=== PATIENT | female | born 1975 | race Caucasian/White ===

== ENCOUNTER 2016-09-21 00:08 | Emergency (ER) | payer OTHER ==
--- NOTE | 2016-09-21 01:18 | ED Physician Documentation ---
Female Urogenital Problems - HISTORIAN Historian: patient - HPI Stated Complaint: Vaginal bleeding, increased flow over past 2 days Chief Complaint: Female Urogenital Problems Additional Information: HEAVY MENSES W/CLOTS-HAS HAD THIS PROBLEM FOR YEARS-ESS NO HELP FROM GYNECOLOGISTS-CONCERN RE ANEMIA Onset: days ago (3) Severity: moderate Location of Pain: vaginal pain (MODERATE TO MINIMAL ESS USUAL BUT MORE CLOTS THIS MENSES) - Vaginal Bleeding Compared to Menstrual Periods: heavier, passing clots - Associated Symptoms Urinary Symptoms: none Discharge: vaginal discharge - ROS CONST: no problems (HAS URI SAW DR PRESCOTT TODAY) GI/: denies: nausea, vomiting CVS/RESP: none EYES/ENT: none NEURO/PSYCH: none MS/SKIN/LYMPH: none - PAST HX Past History: other (PCOS DM LO THRYOID) Surgeries/Procedures: Allergies/Adverse Reactions: Allergies Allergy/AdvReac Type Severity Reaction Status Date / Time tramadol Allergy Mild hives Verified 09/21/16 01:16 Home Medications: Ambulatory Orders Medication Instructions Recorded Insulin Aspart Protam & Aspart See Protocol SUBCUT 09/21/16 [Novolog Mix 70-30 Vial] - SOCIAL HX Smoking History: non-smoker Alcohol Use: none Drug Use: none - FAMILY HX Family History: none - VITAL SIGNS Vital Signs: Vital Signs Temp Pulse Resp BP Pulse Ox 88 18 138/84 98 09/21/16 00:08 09/21/16 00:08 09/21/16 00:08 09/21/16 00:08 - REVIEWED ASSESSMENTS Nursing Assessment Reviewed: Yes Vitals Reviewed: Yes ED Results Lab/Radiology - Orders Orders: ED Orders Category Date Time Status CBC/PLATELET/DIFF Routine Lab 09/21/16 Ordered Female Urogenital Problems - EXAM General Appearance: mild distress EENT: eye inspection normal Neck: nml inspection Respiratory: no resp. distress, breath sounds nml CVS: reg rate & rhythm, heart sounds normal Abdomen: soft, non-tender Pelvic: other ( HAS RATHER SMALL BLOOD CLOT IN PANTIES WHICH SHE BROUGHT) Skin: color nml, no rash, warm,dry. No: cyanosis, diaphoresis Extremities: non-tender, other (NAIL MARIUM LESS THAN 1 SECOND) Neuro: oriented X3, motor nml, sensation nml, mood/affect nml Discharge Clincal Impression: Menorrhagia Referrals: Kady Prescott MD [Primary Care Provider] - 2 Days Home Medications: Ambulatory Orders Insulin Aspart Protam & Aspart [Novolog Mix 70-30 Vial] See Protocol SUBCUT 05/05 Comments: pts bld count quite good-she prefers no hormone tx-referr to pcp Condition: Good Disposition: 01 HOME, SELF-CARE Decision to Admit: NO Decision Time: 02:28
[2016-09-21 01:50] LABS: BASOPHILS % 0.4 (0.0-1.5); EOSINOPHILS % 1.6 % (0.0-6.8); MEAN CORPUSCULAR HEMOGLOBIN 31.8 pg (28.0-34.0); MEAN CORPUSCULAR VOLUME 91.5 fl (80.0-100.0); MONOCYTES % 5.9 % (0.0-11.0); NEUTROPHILS # 2.8 # k/uL (1.4-7.7)
[2016-09-21 02:42] VITALS: BP 133/76
== END 2016-09-21 02:37 | disposition home or self-care (01) ==
LOC: ED 00:08
DX: N92.0 Excessive and frequent menstruation with regular cycle (principal)
CPT/HCPCS: 85025; 99283; S1016